=== PATIENT | female | born 1985 | race Caucasian/White ===

== ENCOUNTER 2017-05-05 18:37 | Observation (INO) | payer BC ==
[2017-05-05 22:05] VITALS: BP 111/73; PULSE 82
== END 2017-05-05 21:25 | disposition home or self-care (01) ==
LOC: OB 18:37
PROVIDERS: ADMIT Family Medicine; ATTEND Family Medicine
DX: Z34.83 Encounter for supervision of other normal pregnancy, third trimester (principal)
CPT/HCPCS: 80307; G0378

== ENCOUNTER 2017-05-10 21:55 | Observation (INO) | payer BC ==
[2017-05-10 22:30] VITALS: BP 131/64; PULSE 88
== END 2017-05-11 02:40 | disposition home or self-care (01) ==
LOC: OB 21:55
PROVIDERS: ADMIT Family Medicine; ATTEND Family Medicine
DX: Z34.83 Encounter for supervision of other normal pregnancy, third trimester (principal)
CPT/HCPCS: 80307; G0378

== ENCOUNTER 2017-05-13 10:30 | Inpatient (IN) | payer BC ==
[2017-05-13] MEDS ORDERED: XYLOCAINE 1% HCL 20 ML MDV IJ PRN (10:41)
[2017-05-13] MEDS ORDERED: BRETHINE 1 MG/ML SQ PRN (10:41)
[2017-05-13] MEDS ORDERED: Nubain 10 MG/ML IV PRN (10:41)
[2017-05-13] MEDS ORDERED: Zofran 4 MG/2 ML VIAL IV PRN (10:41)
[2017-05-13] MEDS ORDERED: Phenergan 25 MG INJ IV PRN (10:41)
[2017-05-13] MEDS ORDERED: TYLENOL EXTRA STRENGTH 500 MG PO PRN ×2 (10:41→17:29)
[2017-05-13] MEDS ORDERED: Lactated Ringers 1,000 ML IV SCH (11:00)
[2017-05-13] MEDS ORDERED: PITOCIN 30 UNITS/ LR 500 ML 500 ML IV SCH (11:00)
[2017-05-13 11:10] LABS: BASOPHIL % 0.2 % (0.0-0.4); Eosinophil % 1.1 % (0.00-5.0); Granulocytes % 64.8 % (36.0-66.0); Lymphocytes % 24.2 % (24.0-44.0); Mean Cell Volume 90.6 fl (78-100); Mean Platelet Volume 10.9 fl (6-9.5); Monocytes % 9.7 % (0.0-12.0); Platelet Count 209 K/mm3 (150-450); Red Blood Count 3.61 M/mm3 (4.1-5.4); Red Cell Distribution Width 13.6 % (11.5-14.0); White Blood Count 6.4 K/mm3 (4.0-10.5)
[2017-05-13] MEDS: STADOL 2 MG IV PRN ×2 (14:55→15:15)
[2017-05-13] MEDS ORDERED: Ambien 10 MG PO PRN (17:29)
[2017-05-13] MEDS ORDERED: Restoril 15 MG PO PRN (17:29)
[2017-05-13] MEDS ORDERED: LANSINOH 40 GM TOP PRN (17:29)
[2017-05-13] MEDS ORDERED: Dermoplast Spray TP PRN (17:29)
[2017-05-13] MEDS ORDERED: CORTISONE 1% CREAM TP PRN (17:29)
[2017-05-13] MEDS ORDERED: NORCO 5/325 MG PO PRN (17:29)
[2017-05-13] MEDS ORDERED: Anucort-HC SUPPOSITORY PR PRN (17:29)
[2017-05-13] MEDS ORDERED: TUCKS TP PRN (17:29)
[2017-05-13] MEDS: Colace 100 MG PO SCH (22:19)
[2017-05-14] MEDS: MOTRIN 400 MG PO PRN ×2 (01:47→21:12)
[2017-05-14 05:43] LABS: BASOPHIL % 0.2 % (0.0-0.4); Eosinophil % 0.4 % (0.00-5.0); Granulocytes % 66.5 % (36.0-66.0); Lymphocytes % 22.5 % (24.0-44.0); Mean Cell Volume 91.5 fl (78-100); Mean Platelet Volume 11.1 fl (6-9.5); Monocytes % 10.4 % (0.0-12.0); Platelet Count 216 K/mm3 (150-450); Red Blood Count 3.53 M/mm3 (4.1-5.4); Red Cell Distribution Width 13.6 % (11.5-14.0); White Blood Count 12.2 K/mm3 (4.0-10.5)
[2017-05-14 05:48] LABS: Mean Corpuscular Hemoglobin 28.8 pg (26-32)
[2017-05-14] MEDS ORDERED: Adacel Vial IM ONE (10:00)
[2017-05-14] MEDS: FERREX 150 PO SCH (10:27)
[2017-05-14] MEDS: Colace 100 MG PO SCH ×2 (10:27→21:12)
--- NOTE | 2017-05-15 10:14 | PCM.DS ---
Discharge Summary Date of Admission: 05/13/17 12:14 Admitting Physician: DEBORAH NARAYANAN Primary Care Provider: LISSA LANCE Allergies Allergies No Known Drug Allergies Allergy (Verified 05/05/17 19:35) Hospital Summary - Hospital Course Hospital Course: patient had elective induction at 39 6/7, uncomplicated . on 05/13 to viable male 8#6oz no complications. - Vitals & Intake/Output Vital Signs: Vital Signs Temperature 98.0 F 05/15/17 08:00 Pulse Rate 81 05/15/17 08:00 Respiratory Rate 18 05/15/17 08:00 Blood Pressure 128/76 05/15/17 08:00 O2 Sat by Pulse Oximetry Intake & Output: Intake & Output 05/12/17 05/13/17 05/14/17 05/15/17 11:59 11:59 11:59 11:59 Weight 110.677 kg - Lab Result Diagrams: 05/14/17 04:00 Discharge Exam General Appearance: no apparent distress, alert Respiratory Exam: normal breath sounds, lungs clear, No respiratory distress Cardiovascular Exam: regular rate/rhythm, normal heart sounds Gastrointestinal/Abdomen Exam: soft, No tenderness, No mass Extremity Exam: normal inspection, normal range of motion Final Diagnosis/Problem List - Final Discharge Diagnosis/Problem (1) Vaginal delivery Current Visit: Yes Status: Acute (2) () Current Visit: Yes Status: Acute - Discharge Disposition: Home, Self-Care Condition: Stable Prescriptions: Continue Vits W-Ca,Fe,FA(<1Mg) [] 1 tab PO DAILY Follow up with: LISSA LANCE [Primary Care Provider] - 1 Week
[2017-05-15] MEDS: FERREX 150 PO SCH (10:27)
[2017-05-15] MEDS: Colace 100 MG PO SCH (10:27)
[2017-05-15] MEDS ORDERED: Adacel Vial IM ONE (11:00)
[2017-05-15 17:44] VITALS: BP 147/69; PULSE 98
== END 2017-05-15 17:30 | disposition home or self-care (01) | DRG 775 ==
LOC: OB 10:30 → OBSVTOIN 12:14 → OB 12:14
PROVIDERS: ADMIT Family Medicine; ATTEND Family Medicine
PROC: 10E0XZZ Delivery of Products of Conception, External Approach (ICD-10-PCS; principal; 2017-05-13)
DX: O80 Encounter for full-term uncomplicated delivery (principal); Z3A.39 39 weeks gestation of pregnancy; Z37.0 Single live birth
CPT/HCPCS: 36415; 80307; 85025; 90715; G0378; J0595; J2590; A9270-GY